=== PATIENT | female | born 1935 | race Caucasian/White ===

== ENCOUNTER 2019-09-26 13:11 | Inpatient (IN) | payer MEDICARE ==
[~2019-09-26] VITALS: Ht 147.3 cm; Wt 39.0 kg
[2019-09-26 13:19] VITALS: BP 138/78
[2019-09-26] MEDS ORDERED: LIPITOR10 MG PO (13:42)
[2019-09-26] MEDS ORDERED: CELEXA 20 MG TA20 MG PO (13:42)
[2019-09-26] MEDS ORDERED: DILTIAZEM ER180 M2 PO (13:43)
[2019-09-26] MEDS ORDERED: CARDIZEM SR 60M60 MG PO (13:43)
[2019-09-26] MEDS ORDERED: FLONASE 0.05%50 MCG NARES (13:43)
[2019-09-26] MEDS ORDERED: LISINOPRIL-HCT1 EACH PO (13:44)
[2019-09-26] MEDS ORDERED: NEURONTIN 300M300 M2 PO (13:44)
[2019-09-26] MEDS ORDERED: FUROSEMIDE 20 M20 MG PO (13:44)
[2019-09-26] MEDS ORDERED: MEGESTROL ACETA40 MG PO (13:45)
[2019-09-26] MEDS ORDERED: KLOR-CON M2020 MEQ PO (13:46)
[2019-09-26] MEDS ORDERED: PROTONIX40 M4 PO (13:46)
[2019-09-26 13:58] LABS: HEMATOCRIT 29.6 % (37.0-47.0); HEMOGLOBIN 10.2 gm/dL (12.0-15.0); MCH 30.4 pg (26.0-34.0); MCHC 34.4 g/dL (28.0-37.0); MCV 88.2 fL (80.0-100.0); NUCLEATED RBCS 0 /100WBC; PLATELET COUNT* 286 thou/uL (150-400); RBC 3.35 mil/uL (4.20-5.00); RDW-CV 13.2 % (10.5-14.5)
[2019-09-26 14:02] LABS: URINE BILIRUBIN NEGATIVE (Negative); URINE BLOOD NEGATIVE (Negative); URINE CLARITY CLEAR; URINE COLOR YELLOW; URINE GLUCOSE-RANDOM NEGATIVE (Negative); URINE KETONES TRACE (Negative); URINE LEUKOCYTES-REFLEX NEGATIVE (Negative); URINE NITRITE-REFLEX NEGATIVE (Negative); URINE PROTEIN NEGATIVE (Negative); URINE UROBILINOGEN 0.2 E.U./dl (0.2-1.0)
[2019-09-26 14:02] LABS: INFLUENZA A ANTIGEN Negative (Negative); INFLUENZA B ANTIGEN Negative (Negative)
[2019-09-26 14:06] LABS: INR 1.1; PROTIME 10.9 Seconds (9.20-11.50)
[2019-09-26 14:07] LABS: CALCIUM 9.1 mg/dL (8.5-10.1); CREATININE 0.9 mg/dL (0.6-1.3); POTASSIUM 3.2 mmol/L (3.5-5.1)
[2019-09-26 14:23] LABS: ALBUMIN 3.5 g/dL (3.4-5.0); TOTAL BILIRUBIN 0.7 mg/dL (<0.1-1.0); TOTAL PROTEIN 6.9 g/dL (6.4-8.2)
[2019-09-26 14:33] LABS: ABSOLUTE LYMPHOCYTES 0.4 thou/uL (0.8-5.3); ABSOLUTE MONOCYTES 0.2 thou/uL (0.0-1.2); ABSOLUTE NEUTROPHILS 10.3 thou/uL (1.6-8.1); PLATELET ESTIMATE ADEQUATE
[2019-09-26 14:35] LABS: HYPOCHROMASIA 1+
--- NOTE | 2019-09-26 15:35 | EKG ---
[place] [address] ELECTROCARDIOGRAM REPORT Name: CLARA KERNS Room: [place] [address] ADM IN [facility].#: [id number] Admission: 09/26/19 Attend Phys: Bird Patel Discharge: Date of : 33 Date of Service: 09/26/19 1336 Report #: [id number] THIS REPORT FOR: //name// [facility] ED Test Date: 2019-09-26 Test Time: 13:36:23 Pat Name: CLARA KERNS Department: Room: [facility] Gender: F [employer]el Sl[employer]ger: [facility] : 1935 Requested By: Brandon Cheng Order Number: [id number] MD: Randy Deras Measurements Intervals [place] Rate: 75 P: 56 MN: 189 QRS: 44 QRSD: 76 T: 44 QT: 370 QTc: 414 Interpretive Statements Sinus rhythm artifact noted Low voltage, precordial leads No previous ECG available for comparison Electronically Signed On 09-26-2019 15:34:28 [employer] by Randy Deras [email or web address] <ELECTRONICALLY SIGNED> By: Randy Deras MD, [facility] 09/26/19 1534 1336 1336 Randy Deras MD, [facility] /EPI
[2019-09-26 15:48] VITALS: BP 132/67
[2019-09-26 16:30] VITALS: BP 138/68
[2019-09-27 03:29] LABS: ABSOLUTE BASOPHILS 0.1 thou/uL (0.0-0.2); ABSOLUTE LYMPHOCYTES 1.1 thou/uL (0.8-5.3); ABSOLUTE MONOCYTES 0.7 thou/uL (0.0-1.2); ABSOLUTE NEUTROPHILS 6.3 thou/uL (1.6-8.1); BASOPHILS 0.8 %; EOSINOPHILS 0.1 %; HEMATOCRIT 25.1 % (37.0-47.0); HEMOGLOBIN 8.6 gm/dL (12.0-15.0); LYMPHOCYTES 13.4 %; MCH 30.6 pg (26.0-34.0); MCHC 34.3 g/dL (28.0-37.0); MCV 89.2 fL (80.0-100.0); MONOCYTES 8.8 %; MPV 9.1 fl. (7.2-11.1); NUCLEATED RBCS 0 /100WBC; PLATELET COUNT* 227 thou/uL (150-400); POLYS 76.9 %; RBC 2.82 mil/uL (4.20-5.00); RDW-CV 13.2 % (10.5-14.5); WBC 8.1 thou/uL (4.0-11.0)
[2019-09-27 03:51] LABS: ALBUMIN 2.7 g/dL (3.4-5.0); CALCIUM 8.2 mg/dL (8.5-10.1); CREATININE 0.9 mg/dL (0.6-1.3); MAGNESIUM 1.5 mg/dL (1.8-2.4); PHOSPHORUS* 3.4 mg/dL (2.5-4.9); POTASSIUM 3.4 mmol/L (3.5-5.1); TOTAL BILIRUBIN 0.3 mg/dL (<0.1-1.0); TOTAL PROTEIN 5.5 g/dL (6.4-8.2)
[2019-09-27 07:34] VITALS: BP 130/60
[2019-09-27 16:00] VITALS: BP 127/61
[2019-09-27] MEDS ORDERED: EVISTA60 MG PO (16:34)
[2019-09-27 21:03] VITALS: BP 148/67
[2019-09-28 03:23] LABS: ABSOLUTE LYMPHOCYTES 1.6 thou/uL (0.8-5.3); ABSOLUTE MONOCYTES 0.9 thou/uL (0.0-1.2); ABSOLUTE NEUTROPHILS 5.2 thou/uL (1.6-8.1); BASOPHILS 0.3 %; EOSINOPHILS 0.2 %; HEMATOCRIT 27.5 % (37.0-47.0); HEMOGLOBIN 9.3 gm/dL (12.0-15.0); LYMPHOCYTES 20.5 %; MCH 29.8 pg (26.0-34.0); MCHC 33.9 g/dL (28.0-37.0); MCV 87.9 fL (80.0-100.0); MONOCYTES 11.3 %; MPV 8.6 fl. (7.2-11.1); NUCLEATED RBCS 0 /100WBC; PLATELET COUNT* 229 thou/uL (150-400); POLYS 67.7 %; RBC 3.13 mil/uL (4.20-5.00); RDW-CV 13.2 % (10.5-14.5); WBC 7.7 thou/uL (4.0-11.0)
[2019-09-28 03:39] LABS: ALBUMIN 2.7 g/dL (3.4-5.0); CALCIUM 8.1 mg/dL (8.5-10.1); CREATININE 0.8 mg/dL (0.6-1.3); TOTAL BILIRUBIN 0.3 mg/dL (<0.1-1.0); TOTAL PROTEIN 5.4 g/dL (6.4-8.2)
[2019-09-28 08:30] VITALS: BP 146/77
[2019-09-28] MEDS ORDERED: METRONIDAZOLE500 M4 PO (10:53)
[2019-09-28] MEDS ORDERED: LEVAQUIN 500 M500 M3 PO (12:23)
[2019-09-28 13:43] VITALS: BP 146/77
[2019-09-28 20:00] VITALS: BP 168/89
[2019-09-29 03:56] VITALS: BP 166/92
[2019-09-29 09:10] VITALS: BP 156/84
[2019-09-29 13:52] LABS: MAGNESIUM 1.3 mg/dL (1.8-2.4)
[2019-09-29 14:24] VITALS: BP 146/77
== END 2019-09-29 14:45 | DRG 372 ==
LOC: M.ERS 13:11 → M.ORTHSURG 14:45 → M.TBA-ER 14:45 → M.ORTHSURG 16:10
PROVIDERS: Family Medicine; ADMIT Internal Medicine
DX: A04.9 Bacterial intestinal infection, unspecified (principal); E44.0 Moderate protein-calorie malnutrition; Z68.1 Body mass index [BMI] 19.9 or less, adult; J44.9 Chronic obstructive pulmonary disease, unspecified; I10 Essential (primary) hypertension; E86.0 Dehydration; Z86.12 Personal history of poliomyelitis; Z85.3 Personal history of malignant neoplasm of breast; Z90.11 Acquired absence of right breast and nipple; Z85.038 Personal history of other malignant neoplasm of large intestine; Z82.49 Family history of ischemic heart disease and other diseases of the circulatory system